=== PATIENT | female | born 1980 | race Asian ===

== ENCOUNTER 2018-01-31 07:52 | Inpatient (IN) | payer OTHER ==
[~2018-01-31] VITALS: Ht 157.5 cm; Wt 74.1 kg
[~2018-01-31 07:52] MED LIST: DOCU-131 PO; HYDR-3240 PO; IBUP-1222 PO; PREN1TAB60 PO
[2018-01-31] MEDS ORDERED: D5%-LACTATED RINGERS 1,000 ML IV SCH (08:27)
[2018-01-31] MEDS ORDERED: OXYTOCIN 30U/ 0.9% NaCL 500ML 500 ML IV ONE (08:27)
[2018-01-31] MEDS ORDERED: CALCIUM CARBONATE 500 MG TAB.CHEW PO PRN (08:30)
[2018-01-31] MEDS ORDERED: ONDANSETRON 2MG/ML, 2ML IVPush PRN (08:30)
[2018-01-31] MEDS ORDERED: SODIUM CITRATE/CITRIC ACID 30 ML UDC PO PRN (08:30)
[2018-01-31] MEDS ORDERED: FENTANYL PF 100 MCG/2ML IVPush PRN (08:30)
[2018-01-31] MEDS ORDERED: ALUMINUM/MAG/SIMETHICONE 30 ML UDC PO PRN (08:30)
[2018-01-31] MEDS: LACTATED RINGERS 1,000 ML IV SCH ×2 (09:00→16:01)
[2018-01-31 09:02] LABS: BASOPHILS # (AUTO) 0.09 x10^3/uL (0-0.1); BASOPHILS % (AUTO) 1 % (0-1); EOSINOPHILS # (AUTO) 0.18 x10^3/uL (0-0.4); EOSINOPHILS % (AUTO) 2 % (1-7); LYMPHOCYTES # (AUTO) 1.91 x10^3/uL (1-3.4); LYMPHOCYTES % (AUTO) 18 % (22-44); MD NO; MEAN CORPUSCULAR HEMOGLOBIN 32.9 pg (27.0-34.8); MEAN CORPUSCULAR HGB CONC 34.1 g/dL (32.4-35.8); MEAN CORPUSCULAR VOLUME 96.5 fL (80-100); MEAN PLATELET VOLUME 7.7 fL (7.4-10.4); MONOCYTES % (AUTO) 5 % (2-9); NEUTROPHILS # (AUTO) 7.92 x10^3/uL (1.8-6.8); NEUTROPHILS % (AUTO) 75 % (42-75); PLATELET COUNT 295 x10^3/uL (130-400); RED CELL DISTRIBUTION WIDTH 13.4 % (9.6-15.2)
[2018-01-31 09:06] VITALS: BP 115/66
[2018-01-31] MEDS ORDERED: NEWBORN KIT ONE (09:37)
[2018-01-31] MEDS ORDERED: LIDOCAINE 1%, 20ML ONE (09:37)
[2018-01-31] MEDS ORDERED: MISOPROSTOL 200 MCG TABLET ONE (09:37)
[2018-01-31] MEDS ORDERED: OXYTOCIN 30U/ 0.9% NaCL 500ML 500 ML ONE (09:37)
[2018-01-31] MEDS ORDERED: FENTANYL/BUPIV./NS/PF 250 ML EPIDCONT SCH ×2 (13:19→16:39)
[2018-01-31] MEDS ORDERED: FENTANYL PF 500 MCG, BUPIVACAINE/PF 0.5%, 30ML 62.5 ML in SODIUM CHLORIDE 0.9% 177.5 ML EPIDCONT SCH (13:30)
[2018-01-31] MEDS ORDERED: LACTATED RINGERS 1,000 ML IV SCH (16:39)
[2018-01-31] MEDS ORDERED: EPHEDRINE 50 MG/ML, 1ML IVPush PRN (17:00)
[2018-01-31] MEDS ORDERED: LACTATED RINGERS 1,000 ML IVBOLUS PRN (17:00)
[2018-01-31] MEDS ORDERED: NALOXONE 0.4 MG/ML, 1ML IVPush PRN (17:00)
[2018-01-31 19:42] VITALS: BP 120/66
[2018-01-31] MEDS ORDERED: BUPIVACAINE 0.25% ONE (21:19)
[2018-01-31] MEDS ORDERED: SODIUM CITRATE/CITRIC ACID 30 ML UDC ONE (22:44)
[2018-01-31] MEDS ORDERED: METOCLOPRAMIDE 5 MG/ML, 2ML ONE (22:44)
[2018-02-01] MEDS: LACTATED RINGERS 1,000 ML IV SCH ×2 (07:17→17:17)
[2018-02-01] MEDS: OXYTOCIN 30U/ 0.9% NaCL 500ML 500 ML IV SCH ×2 (07:17→17:17)
[2018-02-01] MEDS ORDERED: LACTATED RINGERS 1,000 ML IV SCH (07:17)
[2018-02-01] MEDS ORDERED: LIDOCAINE/MPF 2%-EPI 1:200K, 20 ML ONE (07:23)
[2018-02-01] MEDS ORDERED: ONDANSETRON 2MG/ML, 2ML IV PRN (07:30)
[2018-02-01] MEDS ORDERED: ACETAMINOPHEN 325 MG TABLET PO PRN ×2 (07:30)
[2018-02-01] MEDS ORDERED: MISOPROSTOL 200 MCG TABLET PR PRN (07:30)
[2018-02-01] MEDS ORDERED: OXYcodone/APAP 5/325MG TABLET PO PRN ×3 (07:30→21:30)
[2018-02-01] MEDS ORDERED: KETOROLAC 30 MG/1 ML ONE (07:48)
[2018-02-01] MEDS ORDERED: LIDOCAINE-MPF 2% ,5ML ONE (07:48)
[2018-02-01] MEDS ORDERED: WATER-INJECTION,STERILE 10 ML IV ONE (07:48)
[2018-02-01] MEDS ORDERED: DEXAMETHASONE 4 MG/ML, 1ML ONE (07:48)
[2018-02-01] MEDS ORDERED: OXYTOCIN 10 UNITS/ML, 1ML ONE (07:48)
[2018-02-01] MEDS ORDERED: ONDANSETRON 2MG/ML, 2ML ONE (07:48)
[2018-02-01] MEDS ORDERED: CEFAZOLIN 1,000 MG ONE (07:48)
[2018-02-01] MEDS ORDERED: morphine SULFATE/PF 0.5 MG/ML, 10ML ONE (07:55)
[2018-02-01] MEDS: PRENATAL VIT/IRON/FA 1 EACH TABLET PO SCH (09:00)
[2018-02-01] MEDS ORDERED: MEPERIDINE/PF 50 MG/ML ONE (09:26)
[2018-02-01] MEDS ORDERED: HYDROcodone/APAP 7.5-325MG/15ML UDC ONE (10:08)
[2018-02-01] MEDS ORDERED: HYDROcodone/APAP 7.5-325MG/15ML UDC PO ONE (10:30)
[2018-02-01 10:40] VITALS: BP_SYST 110
[2018-02-01 14:45] VITALS: BP 105/61
[2018-02-01 16:57] LABS: MD YES; MEAN CORPUSCULAR HEMOGLOBIN 32.1 pg (27.0-34.8); MEAN CORPUSCULAR HGB CONC 33.3 g/dL (32.4-35.8); MEAN CORPUSCULAR VOLUME 96.4 fL (80-100); MEAN PLATELET VOLUME 7.5 fL (7.4-10.4); PLATELET COUNT 287 x10^3/uL (130-400); RED BLOOD COUNT 3.76 x10^6/uL (3.82-5.3); RED CELL DISTRIBUTION WIDTH 13.6 % (9.6-15.2)
[2018-02-01 16:59] LABS: BAND#(MANUAL) 1.31 x10^3/uL; BANDS%(MANUAL) 8 % (0-7); BASOS#(MANUAL) 0.16 x10^3/uL (0-0.1); BASOS% (MANUAL) 1 % (0-1); LYMPH#(MANUAL) 0.49 x10^3/uL (1-3.4); LYMPHS% (MANUAL) 3 % (22-44); MONOS#(MANUAL) 0.82 x10^3/uL (0.3-2.7); MONOS% (MANUAL) 5 % (2-9); SEG#(MANUAL) 13.61 x10^3/uL (1.8-6.8); SEGS% (MANUAL) 83 % (42-75)
[2018-02-01 17:00] LABS: <PLATELET ESTIMATE> ADEQUATE; <PLT MORPHOLOGY> NORMAL PLT MORPH; <RBC MORPHOLOGY> NORMAL
[2018-02-01 19:35] VITALS: BP 101/65
[2018-02-01] MEDS ORDERED: NALOXONE 0.4 MG/ML, 1ML IV PRN (21:30)
[2018-02-01] MEDS ORDERED: morphine SULFATE 10 MG/ML, 1ML IVPush PRN (21:30)
[2018-02-01] MEDS ORDERED: NO SEDATIVES, TRANQUILIZERS OR ANTIEMETICS XX SCH (21:30)
[2018-02-01] MEDS ORDERED: DIPHENHYDRAMINE 50 MG/ML, 1ML IV PRN (21:30)
[2018-02-01] MEDS ORDERED: ONDANSETRON 2MG/ML, 2ML IVPush PRN (21:30)
[2018-02-01] MEDS ORDERED: METOCLOPRAMIDE 5 MG/ML, 2ML IV PRN (21:30)
[2018-02-01] MEDS ORDERED: EPHEDRINE 50 MG/ML, 1ML IVPush PRN (21:30)
[2018-02-02 00:45] VITALS: BP 96/55
[2018-02-02] MEDS: OXYTOCIN 30U/ 0.9% NaCL 500ML 500 ML IV SCH ×3 (03:17→23:17)
[2018-02-02] MEDS: LACTATED RINGERS 1,000 ML IV SCH ×3 (03:17→23:17)
[2018-02-02 04:00] VITALS: BP 98/61
[2018-02-02 07:45] VITALS: BP 99/61
[2018-02-02] MEDS: PRENATAL VIT/IRON/FA 1 EACH TABLET PO SCH (14:50)
[2018-02-02] MEDS: DOCUSATE 100 MG CAPSULE PO PRN (14:56)
[2018-02-02] MEDS: IBUPROFEN 800 MG TABLET PO PRN (14:57)
[2018-02-02 20:00] VITALS: BP 103/67
[2018-02-03] MEDS: IBUPROFEN 800 MG TABLET PO PRN ×3 (00:04→16:11)
[2018-02-03 07:47] VITALS: BP 98/56
[2018-02-03] MEDS: DOCUSATE 100 MG CAPSULE PO PRN ×2 (08:05→16:11)
[2018-02-03] MEDS: PRENATAL VIT/IRON/FA 1 EACH TABLET PO SCH (08:06)
[2018-02-03] MEDS: LACTATED RINGERS 1,000 ML IV SCH (09:17)
[2018-02-03] MEDS: OXYTOCIN 30U/ 0.9% NaCL 500ML 500 ML IV SCH (09:17)
[2018-02-03] MEDS ORDERED: OXYC-302 PO (13:28)
[2018-02-03] MEDS ORDERED: IBUP-1223 PO (13:29)
== END 2018-02-03 18:00 | disposition home or self-care (01) | DRG 788 ==
LOC: LDOP 07:52 → LDIP 08:35 → 2NW 02-01 10:30
PROVIDERS: ADMIT Obstetrics & Gynecology; ATTEND Obstetrics & Gynecology
PROC: 10D00Z1 Extraction of Products of Conception, Low, Open Approach (ICD-10-PCS; principal; 2018-01-31)
PROC: 5A09357 Assistance with Respiratory Ventilation, Less than 24 Consecutive Hours, Continuous Positive Airway Pressure (ICD-10-PCS; 2018-01-31)
DX: O40.3XX0 Polyhydramnios, third trimester, not applicable or unspecified (principal); Z37.0 Single live birth; Z3A.39 39 weeks gestation of pregnancy; O24.420 Gestational diabetes mellitus in childbirth, diet controlled; O66.41 Failed attempted vaginal birth after previous cesarean delivery; O62.1 Secondary uterine inertia
CPT/HCPCS: 36415; 76815; 82803; 82962; 85025; 86850; 86900; G0378; J0690; J1100; J1885; J2274; J2405; J3490; J2590; J7120